=== PATIENT | male | born 1980 | race Two or more races ===

== ENCOUNTER 2022-10-03 13:40 | Emergency (ER) | payer OTHER ==
[~2022-10-03] VITALS: Ht 177.8 cm; Wt 85.3 kg
[2022-10-03 17:09] VITALS: BP 133/77
[2022-10-03] MEDS ORDERED: CYCL-839 PO (17:40)
[2022-10-03] MEDS ORDERED: IBUP600T28 PO (17:40)
[2022-10-03 17:45] LABS: Urine Bacteria NONE SEEN /hpf (None Seen); Urine Blood Negative /uL (Negative); Urine Specific Gravity 1.011 (1.001-1.035); Urine WBC <1 /hpf (0 - 3)
[2022-10-03] MEDS ORDERED: KETOROLAC TROMETH 30 MG/ML 1ML VIAL IM ONE (17:45)
[2022-10-03 17:56] LABS: Alcohol, Urine < 3.0 mg/dL (0-10); Amphetamine Screen, Urine NEGATIVE (NEGATIVE); Barbiturate Scree,Urine NEGATIVE (NEGATIVE); Benzodiazephine Screen, Urine NEGATIVE (NEGATIVE); Cannabinoid Screen, Urine NEGATIVE (NEGATIVE); Cocaine Screen, Urine NEGATIVE (NEGATIVE); Opiate Scree,Urine NEGATIVE (NEGATIVE); Phencyclidine Screen, Urine NEGATIVE (NEGATIVE)
== END 2022-10-03 18:21 | disposition home or self-care (01) ==
LOC: ER 13:40
DX: S46.911A Strain of unspecified muscle, fascia and tendon at shoulder and upper arm level, right arm, initial encounter (principal); X58.XXXA Exposure to other specified factors, initial encounter; Y93.89 Activity, other specified; Y92.89 Other specified places as the place of occurrence of the external cause; Y99.8 Other external cause status
CPT/HCPCS: 73030; 80307; 81001; 96372; 99284; J1885